=== PATIENT | female | born 2000 | race African-American/Black ===

== ENCOUNTER 2020-10-10 02:42 | Emergency (ER) | payer SELFPAY ==
[~2020-10-10] VITALS: Ht 180.3 cm; Wt 70.0 kg
[2020-10-10 03:09] VITALS: BP 132/84
[2020-10-10] MEDS ORDERED: TETANUS AND DIPHTHERIA TOX/PF 0.5ML SYR (ADULT) IM ONE (03:15)
[2020-10-10] MEDS: TETANUS, DIPHTHERIA, PERTUSSIS VAC/PF 0.5ML (>7YR OLD) IM ONE (03:15)
== END 2020-10-10 04:45 | disposition home or self-care (01) ==
LOC: ER 02:42
DX: S01.111A Laceration without foreign body of right eyelid and periocular area, initial encounter (principal); Y04.0XXA Assault by unarmed brawl or fight, initial encounter; Y93.89 Activity, other specified; Y92.89 Other specified places as the place of occurrence of the external cause; Y99.8 Other external cause status
CPT/HCPCS: 12011; 70450; 81025; 90715; 99284; A4217; Z7610; 90714